=== PATIENT | female | born 1990 | race Hispanic/Latino ===

== ENCOUNTER 2023-09-23 00:56 | Inpatient (IN) | payer BC ==
[2023-09-23 01:26] VITALS: BMI 28.6
[2023-09-23] MEDS ORDERED: hydrALAZINE 20 MG/ML VIAL SLOW IVP PRN ×3 (02:35→15:01)
[2023-09-23] MEDS ORDERED: Ondansetron PF 4 MG/2 ML Vial IVP PRN ×2 (02:35→04:23)
[2023-09-23] MEDS ORDERED: Lactated Ringer's 1,000 ML IV SCH (02:45)
[2023-09-23] MEDS ORDERED: Ondansetron PF 4 MG/2 ML Vial IVP SCH (03:00)
[2023-09-23] MEDS ORDERED: fentaNYL 50 mcg/mL 1 mL Vial SLOW IVP SCH (03:00)
[2023-09-23] MEDS ORDERED: Ibuprofen 800 MG TAB PO PRN (03:08)
[2023-09-23] MEDS ORDERED: Lidocaine 1% (PF) 30 ML VIAL SC PRN (03:08)
[2023-09-23] MEDS ORDERED: Promethazine HCl 25 MG/ML VIAL IM PRN ×2 (03:08→04:23)
[2023-09-23] MEDS ORDERED: Misoprostol 200 MCG TAB PR PRN (03:08)
[2023-09-23] MEDS ORDERED: Methylergonovine 0.2 MG/ML VIAL IM PRN (03:08)
[2023-09-23] MEDS ORDERED: fentaNYL/Ropivacaine Epidural 100 ML ONE (03:11)
[2023-09-23] MEDS ORDERED: Oxytocin 30 units/NS 500 ML 500 ML IV SCH ×2 (03:15→15:01)
[2023-09-23 03:42] LABS: Hemoglobin 12.8 g/dL (12.0-15.5); Mean Corpuscular HGB CONC 34.6 g/dL (32.0-36.0); Mean Corpuscular Hemoglobin 31.3 pg (27.0-33.0); Mean Corpuscular Volume 90.5 fl (81.6-98.3); Mean Platelet Volume 12.5 fl (7.4-10.4); Platelet Count 225 10x3/uL (150-450); RBC Distribution Width 13.8 % (11.5-14.5); Red Blood Cell (RBC) Count 4.09 10x6/uL (3.90-5.03); White Blood Cell (WBC) Count 9.8 10x3/uL (3.5-10.5)
[2023-09-23] MEDS: Lactated Ringer's 1,000 ML IV SCH ×2 (03:59→19:18)
[2023-09-23 04:09] LABS: HBSAg Index 0.17 S/CO (0-0.99); Hep B Surf Ag - L&D Non-Reactive S/CO (NonReactive); Syphilis Antibody Nonreactive (Nonreactive); Syphilis Antibody Index 0.04 S/CO (<1.00 Non-Reactive)
[2023-09-23] MEDS ORDERED: Lactated Ringer's 500 ML IV PRN (04:23)
[2023-09-23] MEDS ORDERED: ePHEDrine Sulfate 50 MG/10 ML VIAL SLOW IVP PRN (04:23)
[2023-09-23] MEDS ORDERED: Acetaminophen 325 MG TAB PO PRN (04:23)
[2023-09-23] MEDS ORDERED: diphenhydrAMINE 50 MG/ML VIAL IVP PRN (04:23)
[2023-09-23] MEDS ORDERED: Moisturizing Cream (Eucerin) 113 GM JAR TOP PRN (04:23)
[2023-09-23] MEDS ORDERED: Naloxone HCl 0.4 mg/ml Vial IVP PRN ×2 (04:23)
[2023-09-23] MEDS ORDERED: Communication Order-Pharmacy FS SCH (04:30)
[2023-09-23] MEDS ORDERED: fentaNYL 2 mcg/Ropivacaine 0.2% Epidural 100 ML CADD EPIDURAL SCH (04:30)
[2023-09-23] MEDS: Oxytocin 30 units/NS 500 ML 500 ML IV SCH ×2 (09:28→12:22)
[2023-09-23] MEDS ORDERED: Hepatitis B Vaccine 10 MCG/0.5 ML SYR ONE (14:44)
[2023-09-23] MEDS ORDERED: HYDROcodone/Acetaminophen 5/325 mg Tablet PO PRN ×2 (15:01)
[2023-09-23] MEDS ORDERED: Bisacodyl 10 MG SUPP PR PRN (15:01)
[2023-09-23] MEDS ORDERED: Boostrix 0.5 ML (Tdap) VIAL (>/=7 yrs of age) IM ONE (15:01)
[2023-09-23] MEDS ORDERED: Lanolin Ointment 7 GM TUBE TOP PRN (15:01)
[2023-09-23] MEDS ORDERED: Misoprostol 200 MCG TAB VAG PRN (15:01)
[2023-09-23] MEDS ORDERED: Milk Of Magnesia 30 ML UDCUP PO PRN (15:01)
[2023-09-23] MEDS ORDERED: Benzocaine-Menthol 82.5 ML CAN TOP PRN (15:01)
[2023-09-23] MEDS: Ferrous Sulfate 325 MG TAB PO SCH (19:40)
[2023-09-23] MEDS: Ibuprofen 800 MG TAB PO SCH (20:32)
[2023-09-23] MEDS: Docusate 100 MG CAP PO SCH (20:32)
[2023-09-24] MEDS: Ibuprofen 800 MG TAB PO SCH ×3 (06:16→22:13)
[2023-09-24] MEDS: Ferrous Sulfate 325 MG TAB PO SCH ×2 (07:14→16:38)
[2023-09-24] MEDS: Prenatal Vitamin 1 TAB PO SCH (07:59)
[2023-09-24] MEDS: Docusate 100 MG CAP PO SCH ×2 (07:59→22:14)
[2023-09-24] MEDS ORDERED: Bupivacaine 0.25% HCL 30 ML VIAL ONE (13:00)
[2023-09-24] MEDS: Calcium Carbonate 500 MG ChewTAB PO PRN ×2 (13:36→21:04)
[2023-09-25] MEDS: Ibuprofen 800 MG TAB PO SCH (05:57)
[2023-09-25] MEDS: Calcium Carbonate 500 MG ChewTAB PO PRN (05:57)
[2023-09-25 08:01] VITALS: BP 112/58; TEMP 98.4
[2023-09-25] MEDS: Ferrous Sulfate 325 MG TAB PO SCH (08:02)
[2023-09-25] MEDS: Prenatal Vitamin 1 TAB PO SCH (08:29)
[2023-09-25] MEDS: Docusate 100 MG CAP PO SCH (08:29)
== END 2023-09-25 13:00 | disposition home or self-care (01) | DRG 807 ==
LOC: CSHLD/OP 00:56 → CSHLD 03:19 → CSHPP 14:25
PROVIDERS: ADMIT Family Medicine; ATTEND Family Medicine
PROC: 10D07Z6 Extraction of Products of Conception, Vacuum, Via Natural or Artificial Opening (ICD-10-PCS; principal; 2023-09-23)
PROC: 3E033XZ Introduction of Vasopressor into Peripheral Vein, Percutaneous Approach (ICD-10-PCS; 2023-09-23)
DX: O71.4 Obstetric high vaginal laceration alone (principal); Z37.0 Single live birth; Z3A.39 39 weeks gestation of pregnancy
CPT/HCPCS: 36415; 51702; 85027; 86780; 86850; 86870; 86900; 86901; 87340; 99285; J2001; J2405; J2590; J3010; J7120; S0020